=== PATIENT | female | born 1935 | race Caucasian/White ===

== ENCOUNTER → 2016-12-19 | Outpatient (CLI) | payer OTHER, MEDICARE ==
[~2016-12-19] MED LIST: AMLODIPINE BESY10 MG PO; BENICAR40 MG PO; GLIMEPIRIDE1 MG PO; GLIMEPIRIDE4 MG PO; JANUVIA100 MG PO; JANUVIA25 MG PO; LEVAQUIN750 MG PO; LOVASTATIN40 MG PO; LOW DOSE ASPIRI81 M2 PO; METRONIDAZOLE500 MG PO; OMEPRAZOLE40 M1 PO; VITAMIN B-122000 MC1 PO; ZETIA10 MG PO
== END | disposition home or self-care (01) ==
LOC: NUC 07:57
DX: R68.81 Early satiety (principal)
CPT/HCPCS: 78264; A9541